=== PATIENT | male | born 1970 | race Caucasian/White ===

== ENCOUNTER → 2019-09-30 13:23 | Outpatient (CLI) | payer SELFPAY ==
[2013-09-28 01:34] VITALS: BMI 26.1
--- NOTE | 2019-09-30 13:35 | RAD_ITS ---
STUDY: X-RAY - ABDOMEN/PELVIS REASON FOR EXAM: Male, 49 years old. Renal calculus. TECHNIQUE: Single AP view of the abdomen / pelvis. COMPARISON: Single AP view of the abdomen and pelvis September 28, 2013. FINDINGS: Non-visualized lung bases. Anastomotic suture ring again projects in the mid right flank, and there is a second suture ring again projecting over the mid pelvic region. There is an unremarkable bowel gas pattern. There is no demonstrated free abdominal air. The visualized liver, spleen and kidneys are grossly normal in size and morphology. No demonstrated nephrolithiasis. There is a stable punctate calcification along the inferior margin of the right sacroiliac joint. Small, benign-appearing sclerotic densities again seen in the neck and intertrochanteric region of the right femur, as well as in the roof of the left acetabulum. There are minor, stable degenerative changes of the spine. RAD/Abdomen Single View IMPRESSION: 1. No demonstrated nephrolithiasis. 2. Anastomotic suture lines again seen in the right flank and mid pelvis. Bowel gas pattern is unremarkable. Electronically Signed: Tio Moore MD at 20:09 EDT , Service support ,
== END ==
PROVIDERS: Referring Provider Urology; Visit Provider Urology
DX: N20.2 Calculus of kidney with calculus of ureter (principal)
CPT/HCPCS: 74018